=== PATIENT | female | born 1985 | race Caucasian/White ===

== ENCOUNTER 2017-07-25 10:04 | Emergency (ER) | payer MEDICAID ==
[~2017-07-25] VITALS: Ht 160 cm; Wt 61.0 kg
[2017-07-25 13:41] LABS: BASOPHILS % 0.2 % (0.0-2.0); EOSINOPHILS % 1.3 % (0.0-5.0); HEMATOCRIT. 33.7 % (36.0-48.0); HEMOGLOBIN. 11.3 g/dL (12.0-16.0); LYMPHOCYTES % 14.2 % (20.0-50.0); MEAN CORPUSCULAR HEMOGLOBIN 32.5 pg (28.0-32.0); MEAN CORPUSCULAR VOLUME 96.5 fL (81.0-99.0); MEAN PLATELET VOLUME 7.9 fl (7.4-10.4); MONOCYTES % 6.5 % (2.0-8.0); NEUTROPHILS % 77.8 % (40.0-76.0); PLATELET 309 x1000/uL (130-400); RED BLOOD CELL COUNT 3.49 mill/uL (4.2-5.4); RED CELL DISTRIBUTION WIDTH 12.4 % (11.6-14.6)
[2017-07-25 14:05] LABS: CARBON DIOXIDE 26 mEq/L (21-32); CHLORIDE 104 mEq/L (98-107)
[2017-07-25 14:16] LABS: B-HCG QUANTITATIVE 61482 mIU/mL (<3)
[2017-07-25 16:36] LABS: CLARITY URINE CLOUDY (CLEAR); COLOR URINE YELLOW (YELLOW); KETONES URINE 3+ (NEGATIVE); LEUKOCYTE ESTERASE URINE TRACE (NEGATIVE); NITRITE URINE NEGATIVE (NEGATIVE); OCCULT BLOOD URINE NEGATIVE (NEGATIVE); PROTEIN URINE NEGATIVE (NEGATIVE); UROBILINOGEN URINE 0.2 E.U./dL (0.2-1.0)
[2017-07-25 16:55] VITALS: BP 109/58
== END 2017-07-25 17:05 | disposition home or self-care (01) ==
LOC: ER 10:47
DX: L50.9 Urticaria, unspecified (principal); N39.0 Urinary tract infection, site not specified
CPT/HCPCS: 36415; 76805; 80053; 81001; 84702; 85025; 86850; 86900; 86901; 99285; J7030; Z7610

== ENCOUNTER 2018-01-04 00:10 | Observation (INO) | payer SELFPAY ==
[~2018-01-04] VITALS: Ht 160 cm; Wt 64.4 kg
[2018-01-04] MEDS ORDERED: PREN1TAB33 MT (00:50)
== END 2018-01-04 01:30 | disposition home or self-care (01) ==
LOC: L&D 00:10
PROVIDERS: ADMIT Specialist; ATTEND Specialist
DX: O62.9 Abnormality of forces of labor, unspecified (principal); O48.0 Post-term pregnancy; Z3A.41 41 weeks gestation of pregnancy
CPT/HCPCS: 99281; G0378; J7120

== ENCOUNTER 2018-01-04 14:13 | Inpatient (IN) | payer SELFPAY ==
[~2018-01-04] VITALS: Ht 160 cm; Wt 64.9 kg
[~2018-01-04 14:13] MED LIST: PREN1TAB33 MT
[2018-01-04] MEDS ORDERED: LACTATED RINGERS 1,000 ML IV SCH (14:40)
[2018-01-04] MEDS ORDERED: NALOXONE HCL 0.4 MG/ML 1ML VIAL IM PRN (14:45)
[2018-01-04] MEDS ORDERED: MISOPROSTOL 100MCG TABLET VG PRN (14:45)
[2018-01-04] MEDS ORDERED: BUTORPHANOL TARTRATE 2 MG/ML VIAL IV PRN (14:45)
[2018-01-04] MEDS ORDERED: METHYLERGONOVINE MALEATE 0.2 MG/ML IM PRN ×2 (14:45→20:00)
[2018-01-04] MEDS ORDERED: CARBOPROST TROMETHAMINE 250 MCG/ML AMPUL IM PRN (14:45)
[2018-01-04] MEDS ORDERED: AMPICILLIN 2,000 MG in SODIUM CHLORIDE 0.9% 100 ML IV SCH (14:45)
[2018-01-04] MEDS ORDERED: LIDOCAINE HCL 1% 20ML VIAL (Pyxis) INJ INFIL PRN (14:45)
[2018-01-04] MEDS ORDERED: AMPICILLIN 1,000 MG in SODIUM CHLORIDE 0.9% 50 ML IV SCH (15:00)
[2018-01-04 15:13] LABS: BASOPHILS % 0.5 % (0.0-2.0); EOSINOPHILS % 0.2 % (0.0-5.0); HEMATOCRIT. 31.8 % (36.0-48.0); HEMOGLOBIN. 11.2 g/dL (12.0-16.0); LYMPHOCYTES % 10.3 % (20.0-50.0); MEAN CORPUSCULAR HEMOGLOBIN 32.9 pg (28.0-32.0); MEAN CORPUSCULAR VOLUME 93.7 fL (81.0-99.0); MEAN PLATELET VOLUME 7.8 fl (7.4-10.4); MONOCYTES % 6.6 % (2.0-8.0); NEUTROPHILS % 82.4 % (40.0-76.0); PLATELET 279 x1000/uL (130-400); RED CELL DISTRIBUTION WIDTH 12.5 % (11.6-14.6)
[2018-01-04 15:18] LABS: CLARITY URINE CLOUDY (CLEAR); COLOR URINE DARK YELLOW (YELLOW); KETONES URINE TRACE (NEGATIVE); LEUKOCYTE ESTERASE URINE 1+ (NEGATIVE); NITRITE URINE NEGATIVE (NEGATIVE); OCCULT BLOOD URINE NEGATIVE (NEGATIVE); PH URINE 6.5 (4.5-8.0); PROTEIN URINE 1+ (NEGATIVE); SPECIFIC GRAVITY URINE 1.024 (1.005-1.030)
[2018-01-04 15:18] LABS: PARTIAL THROMBOPLASTIN TIME 25.8 sec (23.4-31.0)
[2018-01-04 15:26] LABS: CHLORIDE 103 mEq/L (98-107)
[2018-01-04] MEDS ORDERED: PENICILLIN G POTASSIUM 5 MMU in DEXT 5% WATER 100 ML IV SCH (15:30)
[2018-01-04 15:32] LABS: *AMPHETAMINES SCREEN URINE NEGATIVE (NEGATIVE); *BARBITURATES SCREEN URINE NEGATIVE (NEGATIVE); *BENZODIAZEPINES SCREEN URINE NEGATIVE (NEGATIVE); *COCAINE SCREEN URINE NEGATIVE (NEGATIVE)
[2018-01-04 15:33] LABS: CANNABINOID URINE SCREEN NEGATIVE (NEGATIVE); METHADONE URINE SCREEN NEGATIVE (NEGATIVE); OPIATES URINE SCREEN NEGATIVE (NEGATIVE); PHENCYCLIDINE URINE SCREEN NEGATIVE (NEGATIVE)
[2018-01-04 16:12] LABS: HEPATITIS B SURFACE ANTIGEN NEGATIVE; RUBELLA IGG 34.1 IU/mL (4.99-10)
[2018-01-04] MEDS: DEXT 5%/LR + PITOCIN 20UNITS/L 1,000 ML IV SCH ×2 (18:36→19:19)
[2018-01-04] MEDS ORDERED: PENICILLIN G POTASSIUM 2.5 MMU in DEXTROSE 5% WATER 50 ML IV SCH (19:30)
[2018-01-04] MEDS ORDERED: DEXT 5%/LR + PITOCIN 20UNITS/L 1,000 ML IV SCH (19:57)
[2018-01-04] MEDS ORDERED: RHO(D) IMMUNE GLOBULIN 300 MCG/SYR IM PRN (20:00)
[2018-01-04] MEDS ORDERED: DIPHENHYDRAMINE 25MG CAPSULE PO PRN (20:00)
[2018-01-04] MEDS ORDERED: LANOLIN OINT 0.25 GM TUBE TOP PRN (20:00)
[2018-01-04] MEDS ORDERED: IBUPROFEN 400MG TABLET PO PRN (20:00)
[2018-01-04] MEDS ORDERED: ACETAMINOPHEN WITH CODEINE 300/30MG TABLET PO PRN (20:00)
[2018-01-04 20:36] VITALS: BP 117/69
[2018-01-04 21:00] VITALS: BP 134/72
[2018-01-04 21:30] VITALS: BP 123/69
[2018-01-04] MEDS: IBUPROFEN 800MG TABLET PO PRN (22:45)
[2018-01-04 23:42] VITALS: BP 115/75
[2018-01-05 07:50] LABS: BASOPHILS % 0.2 % (0.0-2.0); EOSINOPHILS % 0.2 % (0.0-5.0); HEMATOCRIT. 27.2 % (36.0-48.0); HEMOGLOBIN. 9.5 g/dL (12.0-16.0); LYMPHOCYTES % 15.7 % (20.0-50.0); MEAN CORPUSCULAR HEMOGLOBIN 33.2 pg (28.0-32.0); MEAN CORPUSCULAR VOLUME 95.3 fL (81.0-99.0); MEAN PLATELET VOLUME 7.7 fl (7.4-10.4); MONOCYTES % 9.6 % (2.0-8.0); NEUTROPHILS % 74.3 % (40.0-76.0); PLATELET 227 x1000/uL (130-400); RED BLOOD CELL COUNT 2.86 mill/uL (4.2-5.4); RED CELL DISTRIBUTION WIDTH 12.6 % (11.6-14.6)
[2018-01-05 08:00] VITALS: BP 106/58
[2018-01-05] MEDS: PRENATAL VIT/FE FUMARATE/FA TABLET PO SCH (09:12)
[2018-01-05] MEDS: IBUPROFEN 800MG TABLET PO PRN ×2 (09:26→20:45)
[2018-01-05 16:29] VITALS: BP 113/69
[2018-01-05 20:00] VITALS: BP 109/43
[2018-01-05 23:37] VITALS: BP 116/69
[2018-01-06] MEDS: PRENATAL VIT/FE FUMARATE/FA TABLET PO SCH (08:21)
[2018-01-06] MEDS: IBUPROFEN 800MG TABLET PO PRN (08:22)
[2018-01-06 08:30] VITALS: BP 107/63
== END 2018-01-06 11:30 | disposition home or self-care (01) | DRG 560 ==
LOC: L&D 14:13 → OBSVTOIN 14:13 → 7EST PP/OB 20:30
PROVIDERS: ADMIT Obstetrics & Gynecology; ATTEND Obstetrics & Gynecology
PROC: 10E0XZZ Delivery of Products of Conception, External Approach (ICD-10-PCS; principal; 2018-01-05)
PROC: 0HQ9XZZ Repair Perineum Skin, External Approach (ICD-10-PCS; 2018-01-05)
DX: O48.0 Post-term pregnancy (principal); D64.9 Anemia, unspecified; O77.0 Labor and delivery complicated by meconium in amniotic fluid; O70.0 First degree perineal laceration during delivery; O99.03 Anemia complicating the puerperium; Z3A.41 41 weeks gestation of pregnancy; Z37.0 Single live birth
CPT/HCPCS: 36415; 80053; 80305; 81003; 85025; 85610; 85730; 86592; 86703; 86762; 86850; 86900; 87340; J0595; J2310; J2540; J2590; J3490; J7060; J7120

== ENCOUNTER 2020-03-02 12:48 | Emergency (ER) | payer SELFPAY ==
[~2020-03-02] VITALS: Ht 160 cm; Wt 69.0 kg
[2020-03-02] MEDS ORDERED: KETOROLAC 60MG/2ML VIAL IM STA (13:35)
[2020-03-02 14:17] VITALS: BP 128/81
== END 2020-03-02 14:18 | disposition home or self-care (01) ==
LOC: ER 12:48
DX: K04.7 Periapical abscess without sinus (principal)
CPT/HCPCS: 96372; 99283; J1885

== ENCOUNTER 2021-01-03 11:37 | Emergency (ER) | payer SELFPAY ==
[~2021-01-03] VITALS: Ht 160 cm; Wt 64.0 kg
[2021-01-03] MEDS ORDERED: AMOX-424 MT (12:14)
[2021-01-03] MEDS ORDERED: ACET-2708 MT (12:14)
[2021-01-03] MEDS ORDERED: ACETAMINOPHEN 325MG TABLET PO ONE (12:30)
[2021-01-03] MEDS ORDERED: AMOXICILLIN/POTASSIUM CLAVULANATE 875/125MG TAB PO ONE (12:30)
[2021-01-03] MEDS ORDERED: IBUPROFEN 600MG TABLET PO ONE (12:30)
[2021-01-03 12:37] VITALS: BP 126/63
== END 2021-01-03 12:40 | disposition home or self-care (01) ==
LOC: ER 11:37
DX: K04.7 Periapical abscess without sinus (principal)
CPT/HCPCS: 81025; 99284; Z7610

== ENCOUNTER 2021-10-15 21:28 | Inpatient (IN) | payer SELFPAY ==
[~2021-10-15] VITALS: Ht 160 cm; Wt 61.2 kg
[~2021-10-15 21:28] MED LIST changes: +ACET-2708 MT; +AMOX-424 MT
[2021-10-15] MEDS ORDERED: CARBOPROST TROMETHAMINE 250 MCG/ML AMPUL IM PRN (22:30)
[2021-10-15] MEDS ORDERED: LIDOCAINE HCL 1% 10 MG/ML 10ML VIAL IJ SCH (22:30)
[2021-10-15] MEDS ORDERED: NALOXONE HCL 0.4 MG/ML 1ML VIAL IM PRN (22:30)
[2021-10-15] MEDS ORDERED: DEXT 5%/LR + PITOCIN 20UNITS/L 1,000 ML IV SCH ×3 (22:30→23:30)
[2021-10-15] MEDS ORDERED: MISOPROSTOL 100MCG TABLET VG SCH (22:30)
[2021-10-15] MEDS ORDERED: BUTORPHANOL TARTRATE 2 MG/ML VIAL IV PRN (22:30)
[2021-10-15] MEDS ORDERED: AMPICILLIN 2GM in NS 100ML 100 ML IV SCH (22:30)
[2021-10-15] MEDS ORDERED: METHYLERGONOVINE MALEATE 0.2 MG/ML IM PRN ×2 (22:30→23:45)
[2021-10-15] MEDS ORDERED: LACTATED RINGERS 1,000 ML IV SCH (22:30)
[2021-10-15] MEDS ORDERED: LANOLIN OINT 7GM TUBE TOP PRN (23:30)
[2021-10-15] MEDS ORDERED: RHO(D) IMMUNE GLOBULIN 300 MCG/SYR IM PRN (23:30)
[2021-10-15] MEDS ORDERED: DIPHENHYDRAMINE 25MG CAPSULE PO PRN (23:30)
[2021-10-15] MEDS ORDERED: OXYCODONE HCL/ACETAMINOPHEN 5/325MG TABLET PO PRN (23:30)
[2021-10-15] MEDS ORDERED: HEMORRHOIDAL SUPP PR PRN (23:30)
[2021-10-15] MEDS ORDERED: IBUPROFEN 400MG TABLET PO PRN (23:30)
[2021-10-15] MEDS ORDERED: GLYCERIN/WITCH HAZEL LEAF MEDICATED PAD TOP PRN (23:30)
[2021-10-15] MEDS ORDERED: BENZOCAINE/LANOLIN/ALOE VERA SPRAY TOP PRN (23:30)
[2021-10-15 23:44] LABS: CLARITY URINE CLEAR (CLEAR); COLOR URINE YELLOW (YELLOW); KETONES URINE TRACE (NEGATIVE); LEUKOCYTE ESTERASE URINE TRACE (NEGATIVE); NITRITE URINE NEGATIVE (NEGATIVE); OCCULT BLOOD URINE NEGATIVE (NEGATIVE); PROTEIN URINE NEGATIVE (NEGATIVE); SPECIFIC GRAVITY URINE 1.013 (1.005-1.030); UROBILINOGEN URINE 0.2 E.U./dL (0.2-1.0)
[2021-10-15 23:44] LABS: BASOPHILS % 0.2 % (0.0-2.0); EOSINOPHILS % 0.3 % (0.0-5.0); HEMATOCRIT. 31.3 % (36.0-48.0); HEMOGLOBIN. 10.9 g/dL (12.0-16.0); LYMPHOCYTES % 17.7 % (20.0-50.0); MEAN CORPUSCULAR HEMOGLOBIN 33.7 pg (28.0-32.0); MEAN CORPUSCULAR VOLUME 96.1 fL (81.0-99.0); MEAN PLATELET VOLUME 8.3 fl (7.4-10.4); NEUTROPHILS % 73.8 % (40.0-76.0); PLATELET 279 x1000/uL (130-400); RED BLOOD CELL COUNT 3.25 mill/uL (4.2-5.4); RED CELL DISTRIBUTION WIDTH 13.5 % (11.6-14.6)
[2021-10-15] MEDS ORDERED: NALOXONE HCL 0.4MG/ML VIAL IV PRN (23:45)
[2021-10-16 00:02] LABS: INR 0.9; PARTIAL THROMBOPLASTIN TIME 24.5 sec (23.4-31.0); PROTHROMBIN TIME 10.1 sec (9.6-11.0)
[2021-10-16 00:09] LABS: *AMPHETAMINES SCREEN URINE NEGATIVE (NEGATIVE); *BARBITURATES SCREEN URINE NEGATIVE (NEGATIVE); *BENZODIAZEPINES SCREEN URINE NEGATIVE (NEGATIVE); *COCAINE SCREEN URINE NEGATIVE (NEGATIVE); CANNABINOID URINE SCREEN NEGATIVE (NEGATIVE); METHADONE URINE SCREEN NEGATIVE (NEGATIVE); OPIATES URINE SCREEN NEGATIVE (NEGATIVE); PHENCYCLIDINE URINE SCREEN NEGATIVE (NEGATIVE)
[2021-10-16] MEDS: IBUPROFEN 800MG TABLET PO PRN ×3 (00:24→21:55)
[2021-10-16 01:15] VITALS: BP 106/69
[2021-10-16 01:45] VITALS: BP 115/68
[2021-10-16] MEDS ORDERED: AMPICILLIN 1,000 MG in SODIUM CHLORIDE 0.9% 50 ML IV SCH (03:00)
[2021-10-16 03:30] VITALS: BP 112/75
[2021-10-16 07:34] LABS: BASOPHILS % 0.2 % (0.0-2.0); EOSINOPHILS % 0.2 % (0.0-5.0); HEMATOCRIT. 29.2 % (36.0-48.0); HEMOGLOBIN. 10.1 g/dL (12.0-16.0); LYMPHOCYTES % 14.9 % (20.0-50.0); MEAN CORPUSCULAR HEMOGLOBIN 33.5 pg (28.0-32.0); MEAN CORPUSCULAR VOLUME 96.5 fL (81.0-99.0); MEAN PLATELET VOLUME 8.3 fl (7.4-10.4); MONOCYTES % 5.9 % (2.0-8.0); NEUTROPHILS % 78.8 % (40.0-76.0); PLATELET 277 x1000/uL (130-400); RED BLOOD CELL COUNT 3.03 mill/uL (4.2-5.4); RED CELL DISTRIBUTION WIDTH 13.5 % (11.6-14.6)
[2021-10-16 08:03] VITALS: BP 103/70
[2021-10-16] MEDS: PRENATAL VIT/FE FUMARATE/FA TABLET PO SCH (08:43)
[2021-10-16] MEDS: FERROUS SULFATE 325MG TABLET PO SCH ×3 (08:43→17:49)
[2021-10-16] MEDS: MAGNESIUM/ALUMINUM HYDROXIDE/SIMETHICONE 30ML UDC PO SCH ×4 (08:44→21:00)
[2021-10-16 08:52] LABS: CHLORIDE 106 mEq/L (98-107)
[2021-10-16 16:05] VITALS: BP 107/57
[2021-10-16 20:00] VITALS: BP 114/54
[2021-10-16] MEDS ORDERED: DOCUSATE SODIUM 100MG CAPSULE PO SCH (21:00)
[2021-10-17 04:00] VITALS: BP 110/42
[2021-10-17 07:45] VITALS: BP 104/66
[2021-10-17] MEDS: FERROUS SULFATE 325MG TABLET PO SCH (09:02)
[2021-10-17] MEDS: PRENATAL VIT/FE FUMARATE/FA TABLET PO SCH (09:02)
== END 2021-10-17 11:50 | disposition home or self-care (01) | DRG 560 ==
LOC: 8 EST LDRP 21:28 → OBSVTOIN 21:28 → 8EST 10-16 02:07
PROVIDERS: ADMIT Obstetrics & Gynecology; ATTEND Obstetrics & Gynecology
PROC: 10E0XZZ Delivery of Products of Conception, External Approach (ICD-10-PCS; principal; 2021-10-15)
DX: O99.02 Anemia complicating childbirth (principal); Z37.0 Single live birth; D64.9 Anemia, unspecified; O75.89 Other specified complications of labor and delivery; R07.81 Pleurodynia; Z79.1 Long term (current) use of non-steroidal anti-inflammatories (NSAID); Z79.899 Other long term (current) drug therapy; Z3A.40 40 weeks gestation of pregnancy
CPT/HCPCS: 36415; 71101; 76805; 76818; 80048; 80305; 81003; 85025; 86592; 86703; 86762; 86850; 86900; 87340; 87426; G0378; J0290; J2590

== ENCOUNTER 2022-10-25 21:16 | Inpatient (IN) | payer MEDICAID ==
[~2022-10-25] VITALS: Ht 160 cm; Wt 72.6 kg
[~2022-10-25 21:16] MED LIST changes: -PREN1TAB33 MT
[2022-10-25] MEDS ORDERED: CARBOPROST TROMETHAMINE 250 MCG/ML AMPUL IM PRN (21:45)
[2022-10-25] MEDS ORDERED: MISOPROSTOL 100MCG TABLET VG SCH (21:45)
[2022-10-25] MEDS ORDERED: RHO(D) IMMUNE GLOBULIN 300 MCG/SYR IM ONE (21:45)
[2022-10-25] MEDS ORDERED: LIDOCAINE HCL 1% 20ML VIAL (Pyxis) INJ INFIL SCH (21:45)
[2022-10-25] MEDS ORDERED: OXYTOCIN 30 UNITS/500ML NS PMX 500 ML IV SCH ×2 (21:45→22:30)
[2022-10-25] MEDS ORDERED: METHYLERGONOVINE MALEATE 0.2 MG/ML IM PRN ×2 (21:45→22:30)
[2022-10-25] MEDS ORDERED: NALOXONE HCL 0.4 MG/ML 1ML VIAL IM PRN (21:45)
[2022-10-25] MEDS ORDERED: BISACODYL 10MG SUPP PR PRN (22:30)
[2022-10-25] MEDS ORDERED: LANOLIN OINT 7GM TUBE TOP PRN (22:30)
[2022-10-25] MEDS ORDERED: RHO(D) IMMUNE GLOBULIN 300 MCG/SYR IM PRN (22:30)
[2022-10-25] MEDS ORDERED: DIPHENHYDRAMINE 25MG CAPSULE PO PRN (22:30)
[2022-10-25] MEDS ORDERED: IBUPROFEN 400MG TABLET PO PRN (22:30)
[2022-10-25] MEDS ORDERED: PNV (22:48)
[2022-10-25] MEDS: IBUPROFEN 800MG TABLET PO PRN (22:59)
[2022-10-25 23:03] LABS: BASOPHILS % 0.2 % (0.0-2.0); EOSINOPHILS % 0.3 % (0.0-5.0); HEMATOCRIT. 33.1 % (36.0-48.0); HEMOGLOBIN. 11.2 g/dL (12.0-16.0); LYMPHOCYTES % 9.3 % (20.0-50.0); MEAN CORPUSCULAR HEMOGLOBIN 32.8 pg (28.0-32.0); MEAN CORPUSCULAR VOLUME 96.6 fL (81.0-99.0); MEAN PLATELET VOLUME 7.6 fl (7.4-10.4); MONOCYTES % 5.9 % (2.0-8.0); NEUTROPHILS % 84.3 % (40.0-76.0); PLATELET 315 x1000/uL (130-400); RED BLOOD CELL COUNT 3.42 mill/uL (4.2-5.4); RED CELL DISTRIBUTION WIDTH 13.3 % (11.6-14.6)
[2022-10-25 23:12] LABS: CHLORIDE 105 mEq/L (98-107); INR 0.9; PARTIAL THROMBOPLASTIN TIME 26.3 sec (23.4-31.0)
[2022-10-25 23:38] LABS: HEPATITIS B SURFACE ANTIGEN NEGATIVE
[2022-10-25 23:40] VITALS: BP 106/50
[2022-10-26 00:15] VITALS: BP 106/54
[2022-10-26 04:00] VITALS: BP 118/74
[2022-10-26] MEDS: IBUPROFEN 800MG TABLET PO PRN ×3 (08:00→18:45)
[2022-10-26] MEDS ORDERED: PRENATAL VIT/FE FUMARATE/FA TABLET PO SCH (09:00)
[2022-10-26 10:00] VITALS: BP 90/42
[2022-10-26 11:07] LABS: HEMATOCRIT 28.6 % (36.0-48.0); HEMOGLOBIN 9.8 g/dL (12.0-16.0); MEAN CORPUSCULAR HEMOGLOBIN 33.3 pg (28.0-32.0); MEAN CORPUSCULAR VOLUME 96.8 fL (81.0-99.0); PLATELET 288 x1000/uL (130-400); RED BLOOD CELL COUNT 2.95 mill/uL (4.2-5.4); RED CELL DISTRIBUTION WIDTH 13.3 % (11.6-14.6)
[2022-10-26 11:35] LABS: CLARITY URINE TURBID (CLEAR); COLOR URINE RED (YELLOW); KETONES URINE NEGATIVE (NEGATIVE); LEUKOCYTE ESTERASE URINE 2+ (NEGATIVE); NITRITE URINE POSITIVE (NEGATIVE); OCCULT BLOOD URINE 2+ (NEGATIVE); PROTEIN URINE 2+ (NEGATIVE); SPECIFIC GRAVITY URINE 1.025 (1.005-1.030); UROBILINOGEN URINE 0.2 E.U./dL (0.2-1.0)
[2022-10-26 11:57] LABS: *AMPHETAMINES SCREEN URINE NEGATIVE (NEGATIVE); *BARBITURATES SCREEN URINE NEGATIVE (NEGATIVE); *BENZODIAZEPINES SCREEN URINE NEGATIVE (NEGATIVE); *COCAINE SCREEN URINE NEGATIVE (NEGATIVE); CANNABINOID URINE SCREEN NEGATIVE (NEGATIVE); METHADONE URINE SCREEN NEGATIVE (NEGATIVE); OPIATES URINE SCREEN NEGATIVE (NEGATIVE); PHENCYCLIDINE URINE SCREEN NEGATIVE (NEGATIVE)
[2022-10-26 14:00] VITALS: BP 100/56
[2022-10-26 20:00] VITALS: BP 101/52
[2022-10-27] MEDS: IBUPROFEN 800MG TABLET PO PRN (01:10)
[2022-10-27 04:00] VITALS: BP 100/67
[2022-10-27 08:00] VITALS: BP 101/59
[2022-10-27] MEDS ORDERED: FERR325T6 MT (08:31)
[2022-10-27] MEDS ORDERED: IBUP-2030 PO (08:31)
== END 2022-10-27 13:19 | disposition home or self-care (01) | DRG 560 ==
LOC: 8 EST LDRP 21:16 → OBSVTOIN 21:31 → 8EST 23:38
PROVIDERS: ADMIT Obstetrics & Gynecology; ATTEND Obstetrics & Gynecology
PROC: 10E0XZZ Delivery of Products of Conception, External Approach (ICD-10-PCS; principal; 2022-10-25)
DX: O99.02 Anemia complicating childbirth (principal); Z37.0 Single live birth; O69.81X0 Labor and delivery complicated by cord around neck, without compression, not applicable or unspecified; Z3A.39 39 weeks gestation of pregnancy
CPT/HCPCS: 36415; 80053; 80305; 81003; 85025; 85027; 86592; 86703; 86762; 86850; 86900; 87340; 99281; G0378; J2590

== ENCOUNTER 2024-09-12 09:54 | Emergency (ER) | payer MEDICAID ==
[~2024-09-12] VITALS: Ht 167.6 cm; Wt 60.0 kg
[~2024-09-12 09:54] MED LIST changes: +FERR325T6 MT; +IBUP-2030 PO; +PNV
[2024-09-12 10:09] VITALS: O2SAT 100
[2024-09-12] MEDS ORDERED: IBUP-2030 PO (10:40)
[2024-09-12] MEDS ORDERED: AMOX1TAB16 PO (10:40)
[2024-09-12] MEDS ORDERED: T3 PO (10:40)
[2024-09-12] MEDS: AMOXICILLIN/POTASSIUM CLAVULANATE 875/125MG TAB PO ONE (10:59)
[2024-09-12] MEDS: IBUPROFEN 600MG TABLET PO ONE (11:00)
[2024-09-12 11:09] VITALS: BP 118/72; PULSE 72; RESP 18; TEMP 37.2; O2SAT 99
== END 2024-09-12 11:11 | disposition home or self-care (01) ==
LOC: ER 10:58
DX: K04.7 Periapical abscess without sinus (principal); Z79.899 Other long term (current) drug therapy; Z79.1 Long term (current) use of non-steroidal anti-inflammatories (NSAID)
CPT/HCPCS: 99283